=== PATIENT | female | born 1945 ===

== ENCOUNTER 2021-06-19 12:53 | Emergency (ER) | payer MEDICARE ==
[~2021-06-19] VITALS: Ht 152.4 cm; Wt 63.1 kg
--- NOTE | 2021-06-19 14:58 | NUR ---
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
--- NOTE | 2021-06-19 15:58 | NUR ---
PT RESTING, LIGHTS OUT IN ROOM. PT REPORTS FEEING "SLEEPY" AND REQUESTING WATER. DAUGHTER AT BEDSIDE
--- NOTE | 2021-06-19 16:30 | NUR ---
PT MORE AWAKE NOW, REPORTS FEELING "MUCH BETTER". ABLE TO AMBULATE BY HERSELF TO RESTROOM AND BACK.
[2021-06-19 16:42] VITALS: BP 151/85
--- NOTE | 2021-06-19 17:27 | NUR ---
Patient given discharge instructions and they have confirmed that they understand the instructions. Patient ambulatory with steady gait. NAD, all questions answered appropriately, denies additional needs at this time. No personal belongings left in room after discharge.
== END 2021-06-19 18:05 | disposition home or self-care (01) ==
LOC: ED 17:53
DX: T40.7X1A Poisoning by cannabis (derivatives), accidental (unintentional), initial encounter (principal); R94.31 Abnormal electrocardiogram [ECG] [EKG]; Y92.9 Unspecified place or not applicable
CPT/HCPCS: 93005; 99283